=== PATIENT | female | born 1965 | race African-American/Black ===

== ENCOUNTER 2018-12-14 19:04 | Emergency (ER) | payer OTHER, SELFPAY ==
[2018-12-14 19:10] VITALS: BP 100/71; BP 97/71; PULSE 93; PULSE 96; RESP 17; TEMP 37; O2SAT 98; BMI 19.7
--- NOTE | 2018-12-14 19:30 | CM.ED ---
SOCIAL WORK NOTE PATIENT PRESENTS TO THE ED BY . PATIENT WITH SUICIDAL IDEATION AND INTENT TO KILL SELF WITH A GUN. DISCUSSED CASE WITH NURSING AND DR. GALLOWAY. PATIENT TO BE EVALUATED BY CRISIS ONCE MEDICALLY CLEARED. MUSA ZAZUETA, [employer] SYSTEMS ADMINISTRATOR, PROGRAMMABLE LOGIC CONTROLLER ASSEMBLER.
[2018-12-14 19:57] LABS: Absolute Lymphocyte Count 2.64 X10^3/ul (0.83-4.51); Absolute Neutrophil Count 5.2 X10^3/uL (2.0-7.7); Basophil# 0.04 X10^3/uL; Basophil% 0.5 % (0-1); Eosinophils% 1.2 % (0-5); Hematocrit 41.4 % (37-47); Hemoglobin 13.2 g/dl (12.0-15.0); Lymphocyte # 2.64 X10^3/ul (4.0); Lymphocyte % 31.7 % (19-41); Mean Corp Hgb Conc 31.9 g/gl (32-36); Mean Corpuscular Hgb 28.5 pg (27.0-32.0); Mean Corpuscular Volume 89.4 fL (81-99); Mean Platelet Vol. 9.7 fl (6.2-12.0); Monocyte# 0.35 X10^3/uL; Monocyte% 4.2 % (0-10); Neutrophil # 5.18 X10^3/uL (2.7-7.7); Neutrophil % 62.2 % (47-70); POSITIVE COUNT NO; POSITIVE DIFFERENTIAL NO; POSITIVE MORPHOLOGY NO; Platelet Count 388 K/mm3 (150-450); RBC Distribution Width CV 13.9 % (11.6-14.6); RBC Distribution Width SD 45.3 fl (35.1-43.9); Red Blood Count 4.63 M/mm3 (4.2-5.4); White Blood Count 8.3 K/mm3 (4.4-11.0)
[2018-12-14 20:11] LABS: Anion Gap 6 (5-15); BUN 22 mg/dL (7-18); BUN/Creat Ratio 18.3 RATIO (10-20); Calcium,Total 8.5 mg/dL (8.5-10.1); Chloride 112 mmol/L (98-107); EST Glomerular Filtration Rate 50 mL/min (>60); Est Glom Filt Rate - Afr Amer 60 mL/min (>60); Estimated Creatinine Clearance 46.82 ml/min; Glucose 107 mg/dL (74-106); Potassium 3.4 mmol/L (3.5-5.1); Sodium Level 145 mmol/L (136-145)
[2018-12-14 20:26] LABS: Alcohol, Blood (Medical)-Serum < 3.0 mg/dL
[2018-12-14 20:31] LABS: Pregnancy, Serum, hCG Quali. NEGATIVE Negative (0-9 Nonpreg)
[2018-12-14] MEDS: LORazepam 1 MG Tablet PO (20:38)
[2018-12-14 20:39] VITALS: RESP 18
--- NOTE | 2018-12-14 20:58 | ED.RN ---
crisis made aware of patient at this time, emely is on at this time, no given eta
--- NOTE | 2018-12-14 20:58 | ED.VISSUMM ---
- ER Visit Summary Date of Service: 12/14/18 Chief Complaint: Suicidal ideation History of Present Illness: The patient is a 53 F presenting with suicidal ideation. Patient states that she has been very depressed. She feels that she cannot do anything right. Today she started to load a gun to shoot herself and her stopped her. She denies past attempts. She states she has accidentally shot herself in the foot before but that was not intentional. She denies other complaints Physical Examination: Vitals are stable. Patient is afebrile. Alert no acute distress. HEENT exam is unremarkable. Neck is supple. Lungs are clear and equal bilaterally. Heart is regular rate and rhythm. Abdomen is soft nontender nondistended. Extremities are unremarkable. Skin is warm and dry. No focal neurologic deficit. Depressed affect, suicidal ideation Remainder of exam is unremarkable. Emergency Department Course and Treatment: CBC unremarkable. Chemistries showed BUN 22, creatinine 1.20. Old records were reviewed and showed a creatinine of 1.3 on July 27, 2018 at outside facility. Alcohol negative. Discussed with the counseling center for evaluation. Disposition: Per counseling center Impression: Suicidal ideation This note was generated with [employer] dictation software. It may contain incorrect words, spelling, and punctuation that were not noted in review of the chart prior to signing ED Disposition - Plan for ED Patient: Referrals: Kiana Spencer MD [Primary Care Provider] -
[2018-12-14 21:14] LABS: Amphetamine Urine VISTA NEGATIVE (<1000 ng/mL); Barbiturate Urine VISTA NEGATIVE (< 200 ng/mL); Benzodiazepine Urine VISTA POSITIVE (< 200 ng/mL); Cocaine Urine VISTA NEGATIVE (< 300 ng/mL); Ecstacy Urine VISTA NEGATIVE (< 500 ng/mL); Methadone Urine VISTA NEGATIVE (< 300 ng/mL); PCP Urine VISTA NEGATIVE (< 25 ng/mL); THC Urine VISTA NEGATIVE (< 50 ng/mL); Vista UDS pH Range 6
--- NOTE | 2018-12-14 21:48 | ED.RN ---
NEEL FROM [facility] IS HERE TO SEE THIS PT.
[2018-12-14 23:00] VITALS: BP 99/78; PULSE 79; RESP 16; O2SAT 100
[2018-12-14] MEDS: LORazepam 0.5 MG Tablet PO (23:44)
--- NOTE | 2018-12-14 23:57 | ED.RN ---
NORMAL SALINE WAS INITIALLY ORDERED DUE TO KIDNEY FUNCTION, DR. GALLOAWY THEN WAS TOLD PT IS STAGE 3 KIDNEY DISEASE AND HELD THE NS BOLUS.
[2018-12-15] VITALS (7 sets, daily range): BP systolic 115; BP diastolic 88; PULSE 83; RESP 14–16; O2SAT 98
[2018-12-15] MEDS: oxyCODONE 5 MG Tablet 10 MG PO ×2 (00:22→05:17)
[2018-12-15] MEDS: clonazePAM 1 MG Tablet PO (00:22)
[2018-12-15] MEDS: Zolpidem Tartrate 5 MG Tablet 10 MG PO (00:23)
[2018-12-15] MEDS: LORazepam 1 MG Tablet PO (04:21)
--- NOTE | 2018-12-15 05:12 | ED.RN ---
pt requesting pain medication. dr. byers aware.
--- NOTE | 2018-12-15 07:42 | ED.RN ---
report called by yovani. pt cooperative at present time eating breakfast. pt continually states she is not going
--- NOTE | 2018-12-15 08:52 | ED.RN ---
squad here for transport. pt becomes very argumentative.offered pt medication. pt states does not want ativan. pt becomes loud and agressive with this rn. jyoti rn discharge into room. pt remains hostile. security at bedside. police contacted
[2018-12-15] MEDS: LORazepam 1 MG Tablet 2 MG PO (09:00)
--- NOTE | 2018-12-15 09:06 | ED.RN ---
pt requests the 1 mg of ativan and is willing to get on the cot and go. pt medicated and willingly gets on cot with transfer team.
== END 2018-12-15 09:12 ==
PROVIDERS: Emergency Provider Emergency Medicine; Family Provider Internal Medicine; PCP Internal Medicine
DX: R45.851 Suicidal ideations (principal); F41.9 Anxiety disorder, unspecified; Z72.0 Tobacco use; Z79.899 Other long term (current) drug therapy
CPT/HCPCS: 80048; 80307; 80320; 84703; 85025; 99282; G0480

== ENCOUNTER 2019-03-23 22:30 | Emergency (ER) | payer OTHER, SELFPAY ==
[2019-03-23 22:31] VITALS: BP 110/73; PULSE 88; RESP 18; TEMP 36.1; O2SAT 98; BMI 21.4
--- NOTE | 2019-03-23 22:47 | EKG12_ITS ---
Test Reason : SUICIDAL Blood Pressure : / mmHG Vent. Rate : 085 BPM Atrial Rate : 085 BPM P-R Int : 148 ms QRS Dur : 074 ms QT Int : 360 ms P-R-T Axes : 066 057 054 degrees QTc Int : 428 ms Normal sinus rhythm Normal ECG Confirmed by MAINE SCHILLING, KYLIE ([id number]), publication editor CHRISTA JAMESON ([id number]) on 03/27/2019 11:45:57 AM Referred By: JAQUELINE Confirmed By:DANDRE GROVE MD
--- NOTE | 2019-03-23 22:47 | CM.ED ---
Social Work Collaborating with medical team, referral has already been made to crisis. Crisis to evaluate. Lili Rincon MSW, JONAS
--- NOTE | 2019-03-23 22:56 | ED.VISSUMM ---
- ER Visit Summary Patient was signed out to me pending crisis evaluation. Crisis spoke to the patient who is denying that she was suicidal. She is minimizing the fact that she had a gun with her. She claims that there is no ammo in the home. However both myself and crisis are concerned that the patient had a gesture to the point of having a gun in bed with her along with her prior history and felt she should be transferred. This note was generated with [employer]-art ([employer]) software. It may contain incorrect words, spelling, and punctuation that were not noted in review of the chart prior to signing <Craig Mcgowan - Last Filed: 03/24/19 03:53> - ER Visit Summary Date of Service: 03/23/19 Chief Complaint: Suicidal thoughts History of Present Illness: The patient is a 54 F who was brought to the emergency department by police with reported suicidal thoughts. The patient does have a history of anxiety and depression. She got into a verbal altercation with her mikey. She states he just knows how to push my buttons. She states that he told her that I should just kill myself. She states that she took an unloaded gun and had a bed with her. The police were able to convince her to come in to be evaluated. The patient does have history of prior suicidal ideation. She states she was admitted about 5 months ago at [facility]. She states that it really helped. She also has a history of anxiety. She denies any substance abuse. Physical Examination: Vital signs reviewed General: Well-nourished, well-developed Head: Normocephalic, atraumatic Eyes: Pupils equal and reactive, extraocular muscles intact Neck, supple, no lymphadenopathy Heart: Regular rate and rhythm Respiratory: No distress, clear bilaterally Abdomen: Soft, nontender, nondistended, no peritoneal signs Back: Nontender Extremities: Nontender, no edema, no cords Skin: Normal color no rash Neuro: Alert and oriented, no focal or lateralizing deficits Test Results: [] Emergency Department Course and Treatment: The patient will undergo psychiatric screening evaluation. I do feel that she is going to require crisis evaluation given the fact she had a gun, although unloaded, and made threats of self-harm. Disposition is currently pending. Treatment Plan: [] Disposition: [] Impression: [] This note was generated with Dragon dictation software. It may contain incorrect words, spelling, and punctuation that were not noted in review of the chart prior to signing <Bernabe Lemus - Last Filed: 03/27/19 23:49> ED Disposition <Craig Mcgowan - Last Filed: 03/24/19 03:53> <Bernabe Lemus - Last Filed: 03/27/19 23:49> - Plan for ED Patient: Disposition: Psychiatric Hospital or Unit Referrals: [facility],Out of [NON-STAFF] -
[2019-03-23] MEDS: LORazepam 1 MG Tablet 2 MG PO (23:04)
[2019-03-23 23:34] LABS: Absolute Lymphocyte Count 2.22 X10^3/ul (0.83-4.51); Absolute Neutrophil Count 3.5 X10^3/uL (2.0-7.7); Basophil# 0.03 X10^3/uL; Basophil% 0.5 % (0-1); Eosinophil# 0.12 X10^3/uL; Eosinophils% 1.9 % (0-5); Hematocrit 40.9 % (37-47); Hemoglobin 13.6 g/dl (12.0-15.0); Lymphocyte # 2.22 X10^3/ul (4.0); Lymphocyte % 35.2 % (19-41); Mean Corp Hgb Conc 33.3 g/gl (32-36); Mean Corpuscular Volume 87.2 fL (81-99); Mean Platelet Vol. 9.5 fl (6.2-12.0); Monocyte# 0.46 X10^3/uL; Monocyte% 7.3 % (0-10); Neutrophil # 3.47 X10^3/uL (2.7-7.7); Neutrophil % 54.9 % (47-70); Platelet Count 372 K/mm3 (150-450); RBC Distribution Width CV 13.3 % (11.6-14.6); RBC Distribution Width SD 42.2 fl (35.1-43.9); Red Blood Count 4.69 M/mm3 (4.2-5.4); White Blood Count 6.3 K/mm3 (4.4-11.0)
[2019-03-23 23:37] LABS: POSITIVE COUNT NO; POSITIVE DIFFERENTIAL NO; POSITIVE MORPHOLOGY NO
[2019-03-23 23:40] LABS: AST(SGOT) 31 U/L (15-37); Alanine Aminotransfer ALT/SGPT 26 U/L (13-56); Albumin, Serum 4.1 g/dL (3.2-5.0); Alkaline Phosphatase 84 U/L (45-117); Anion Gap 6 (5-15); BUN 12 mg/dL (7-18); BUN/Creat Ratio 10.6 RATIO (10-20); Calcium,Total 9.5 mg/dL (8.5-10.1); Chloride 110 mmol/L (98-107); Creatinine, Serum 1.13 mg/dL (0.55-1.02); EST Glomerular Filtration Rate 53 mL/min (>60); Est Glom Filt Rate - Afr Amer 64 mL/min (>60); Estimated Creatinine Clearance 52.66 ml/min; Glucose 82 mg/dL (74-106); Potassium 3.7 mmol/L (3.5-5.1); Protein, Total 8.1 g/dL (6.4-8.2); Sodium Level 141 mmol/L (136-145)
--- NOTE | 2019-03-23 23:52 | NURSING ---
CALLED CRISIS AT [phone]
[2019-03-24] VITALS (9 sets, daily range): BP systolic 110–123; BP diastolic 70–74; PULSE 76–98; RESP 16–18; TEMP 36.7; O2SAT 94–99
[2019-03-24 00:38] LABS: Amphetamine Urine VISTA NEGATIVE (<1000 ng/mL); Barbiturate Urine VISTA NEGATIVE (< 200 ng/mL); Benzodiazepine Urine VISTA NEGATIVE (< 200 ng/mL); Cocaine Urine VISTA NEGATIVE (< 300 ng/mL); Ecstacy Urine VISTA NEGATIVE (< 500 ng/mL); Methadone Urine VISTA NEGATIVE (< 300 ng/mL); PCP Urine VISTA NEGATIVE (< 25 ng/mL); THC Urine VISTA NEGATIVE (< 50 ng/mL); Vista UDS pH Range 5
[2019-03-24 01:22] LABS: Internal QC Validated? YES +Cl - CLEAR BKGD; Pregnancy, Urine Negative Negative
[2019-03-24] MEDS: oxyCODONE 5 MG Tablet 10 MG PO (01:37)
[2019-03-24] MEDS: Levothyroxine 125 MCG Tablet PO (05:22)
--- NOTE | 2019-03-24 06:12 | NURSING ---
ACCEPTED TO [facility] BY DR. ARNOLD [phone] REPORT
== END 2019-03-24 07:09 ==
PROVIDERS: Emergency Medicine; Emergency Provider Emergency Medicine
DX: R45.851 Suicidal ideations (principal); F41.9 Anxiety disorder, unspecified; F32.9 Major depressive disorder, single episode, unspecified; Z79.899 Other long term (current) drug therapy
CPT/HCPCS: 80053; 80307; 80320; 81025; 85025; 93005; 99284; G0480

== ENCOUNTER → 2020-07-17 | Outpatient (CLI) ==
[2020-07-17 16:53] LABS: Amphetamine Urine VISTA NEGATIVE (<1000 ng/mL); Barbiturate Urine VISTA NEGATIVE (< 200 ng/mL); Benzodiazepine Urine VISTA NEGATIVE (< 200 ng/mL); Cocaine Urine VISTA NEGATIVE (< 300 ng/mL); Ecstacy Urine VISTA NEGATIVE (< 500 ng/mL); Methadone Urine VISTA NEGATIVE (< 300 ng/mL); PCP Urine VISTA NEGATIVE (< 25 ng/mL); THC Urine VISTA NEGATIVE (< 50 ng/mL); Vista UDS pH Range 8
== END | disposition home or self-care (01) ==
PROVIDERS: Anesthesiology Pain Medicine
DX: F11.20 Opioid dependence, uncomplicated (principal)
CPT/HCPCS: 80307

== ENCOUNTER 2020-12-12 06:06 | Outpatient (RCR) | payer BC, SELFPAY ==
[2020-07-17 14:31] VITALS: BMI 19.7
[2020-12-12] MEDS: COVID-19 VACC, MRNA(PFIZER)/PF 30 MCG/0.3 ML SYRINGE IM (16:06)
[2021-01-02] MEDS: COVID-19 VACC, MRNA(PFIZER)/PF 30 MCG/0.3 ML SYRINGE IM (16:00)
== END 2021-03-11 23:59 ==
LOC: IMMUN 06:06
PROVIDERS: PCP Internal Medicine; Referring Provider Family Medicine; Visit Provider Family Medicine
DX: Z23 Encounter for immunization (principal)
CPT/HCPCS: 0001A; 0002A; 91300

== ENCOUNTER 2021-10-29 11:28 | Outpatient (CLI) | payer BC, SELFPAY ==
[2021-10-29 12:35] LABS: Amphetamine Urine VISTA NEGATIVE (<1000 ng/mL); Barbiturate Urine VISTA NEGATIVE (< 200 ng/mL); Benzodiazepine Urine VISTA NEGATIVE (< 200 ng/mL); Cocaine Urine VISTA NEGATIVE (< 300 ng/mL); Ecstacy Urine VISTA POSITIVE (< 500 ng/mL); Methadone Urine VISTA NEGATIVE (< 300 ng/mL); PCP Urine VISTA NEGATIVE (< 25 ng/mL); THC Urine VISTA NEGATIVE (< 50 ng/mL); Vista UDS pH Range 5
== END 2021-10-29 23:59 | disposition short-term general hospital (02) ==
LOC: LAB 11:32
PROVIDERS: PCP Internal Medicine; Visit Provider Anesthesiology Pain Medicine
DX: F11.20 Opioid dependence, uncomplicated (principal)
CPT/HCPCS: 80307

== ENCOUNTER → 2022-05-14 | Outpatient (CLI) | payer BC, SELFPAY ==
[2022-05-14 10:47] LABS: Amphetamine Urine VISTA NEGATIVE (<1000 ng/mL); Barbiturate Urine VISTA NEGATIVE (< 200 ng/mL); Benzodiazepine Urine VISTA NEGATIVE (< 200 ng/mL); Cocaine Urine VISTA NEGATIVE (< 300 ng/mL); Ecstacy Urine VISTA POSITIVE (< 500 ng/mL); Methadone Urine VISTA NEGATIVE (< 300 ng/mL); PCP Urine VISTA NEGATIVE (< 25 ng/mL); THC Urine VISTA NEGATIVE (< 50 ng/mL); Vista UDS pH Range 5
== END | disposition home or self-care (01) ==
LOC: LAB 09:18
PROVIDERS: PCP Internal Medicine; Referring Provider Anesthesiology Pain Medicine; Visit Provider Anesthesiology Pain Medicine
DX: F11.20 Opioid dependence, uncomplicated (principal)
CPT/HCPCS: 80307

== ENCOUNTER → 2023-01-18 | Outpatient (CLI) | payer BC, SELFPAY ==
[2023-01-18 17:42] LABS: Amphetamine Urine VISTA NEGATIVE (<1000 ng/mL); Barbiturate Urine VISTA NEGATIVE (< 200 ng/mL); Benzodiazepine Urine VISTA NEGATIVE (< 200 ng/mL); Cocaine Urine VISTA NEGATIVE (< 300 ng/mL); Ecstacy Urine VISTA POSITIVE (< 500 ng/mL); Methadone Urine VISTA NEGATIVE (< 300 ng/mL); PCP Urine VISTA NEGATIVE (< 25 ng/mL); THC Urine VISTA NEGATIVE (< 50 ng/mL); Vista UDS pH Range 6
== END | disposition home or self-care (01) ==
LOC: LAB 15:23
PROVIDERS: PCP Internal Medicine; Referring Provider Anesthesiology Pain Medicine; Visit Provider Anesthesiology Pain Medicine
DX: F11.20 Opioid dependence, uncomplicated (principal)
CPT/HCPCS: 80307

== ENCOUNTER → 2024-12-26 | Outpatient (CLI) | payer BC, SELFPAY ==
[2024-12-26 20:19] LABS: Amphetamine Urine PRESUMPTIVE POSITIVE (<1000 ng/mL); Barbiturate Urine NEGATIVE (< 200 ng/mL); Benzodiazepine Urine PRESUMPTIVE POSITIVE (< 200 ng/mL); Buprenorphine Urine NEGATIVE (< 200 ng/mL); Cocaine Urine NEGATIVE (< 300 ng/mL); Fentanyl, Urine NEGATIVE; Methadone Urine NEGATIVE (< 300 ng/mL); Opiates Urine NEGATIVE (< 300 ng/mL); Oxycodone, Urine PRESUMPTIVE POSITIVE (< 100 ng/mL); PCP Urine NEGATIVE (< 25 ng/mL); THC Urine NEGATIVE (< 50 ng/mL)
== END | disposition home or self-care (01) ==
LOC: LAB 16:18
PROVIDERS: PCP Internal Medicine; Referring Provider Anesthesiology Pain Medicine; Visit Provider Anesthesiology Pain Medicine
DX: F11.20 Opioid dependence, uncomplicated (principal)
CPT/HCPCS: 80307